=== PATIENT | male | born 1930 | race Caucasian/White ===

== ENCOUNTER 2017-10-08 08:46 | Emergency (ER) | payer OTHER ==
[~2017-10-08] VITALS: Ht 172.7 cm; Wt 64.0 kg
[2017-10-08] MEDS ORDERED: TRAZ-129 PO (08:53)
[2017-10-08] MEDS ORDERED: SODIUM CHLORIDE 0.9% 500 ML IV ONE (09:09)
[2017-10-08 09:31] LABS: BASOPHILS % 0.6 % (0.0-2.0); EOSINOPHILS % 1.3 % (0.0-5.0); HEMATOCRIT. 42.1 % (42.0-52.0); HEMOGLOBIN. 14.3 g/dL (14.0-18.0); LYMPHOCYTES % 13.5 % (20.0-50.0); MEAN CORPUSCULAR HEMOGLOBIN 29.7 pg (28.0-32.0); MEAN CORPUSCULAR VOLUME 87.2 fL (80.0-94.0); MEAN PLATELET VOLUME 7.9 fl (7.4-10.4); MONOCYTES % 8.6 % (2.0-8.0); PLATELET 196 x1000/uL (130-400); RED BLOOD CELL COUNT 4.82 mill/uL (4.7-6.1); RED CELL DISTRIBUTION WIDTH 13.2 % (11.6-14.6)
[2017-10-08 09:39] LABS: PROTHROMBIN TIME 10.2 sec (9.4-11.6)
[2017-10-08 10:13] LABS: CHLORIDE 101 mEq/L (98-107)
[2017-10-08 10:20] LABS: CREATINE KINASE MB FRACTION 3.5 ng/mL (0.5-3.6)
[2017-10-08 10:40] LABS: CLARITY URINE CLEAR (CLEAR); COLOR URINE YELLOW (YELLOW); KETONES URINE NEGATIVE (NEGATIVE); LEUKOCYTE ESTERASE URINE NEGATIVE (NEGATIVE); NITRITE URINE NEGATIVE (NEGATIVE); OCCULT BLOOD URINE NEGATIVE (NEGATIVE); PH URINE 7.5 (4.5-8.0); PROTEIN URINE NEGATIVE (NEGATIVE); SPECIFIC GRAVITY URINE 1.012 (1.005-1.030); UROBILINOGEN URINE 0.2 E.U./dL (0.2-1.0)
[2017-10-08] MEDS ORDERED: ASPIRIN 81MG TABLET PO ONE (11:45)
[2017-10-08 11:54] VITALS: BP 106/74
== END 2017-10-08 12:27 | disposition short-term general hospital (02) ==
LOC: ER 08:59
DX: R07.89 Other chest pain (principal); R55 Syncope and collapse; R42 Dizziness and giddiness; R20.0 Anesthesia of skin; I10 Essential (primary) hypertension; J45.909 Unspecified asthma, uncomplicated
CPT/HCPCS: 36415; 70450; 71045; 80053; 81003; 82553; 82962; 83735; 83880; 84484; 85025; 85610; 85730; 93005; 96360; 96361; 99285; J7040